=== PATIENT | male | born 1985 | race Two or more races ===

== ENCOUNTER 2022-11-10 10:38 | Emergency (ER) | payer OTHER ==
--- OUTSIDE RECORDS SUMMARY | 2022-11-10 10:42 | XMS REPORT | Continuity of Care Document ---
:1985 Author Organization [facility] t Address [address] [place] [address] [address] [place] [address] Care Team Providers Name Role Phone Unavailable Unavailable Unavailable Payers Payer Name Policy Type Policy Number Effective Date Expiration Date S ource Problems Condition Condition Condition Status Onset Resolution Last Treating Co mments Source Name Details Category Date Date Treatment Clinician Date Family Family Diagnosis Active 2021-06-08 Me moria history of history of 05:10:54 l early CAD early CAD Herm beata Active Diagnosis 06/08/2021 Enayet Rahim Dermatitis Diagnosis Active 2021-06-27 Memoria Dermatitis 05:10:53 l Active [place] Diagnosis 06/27/2021 Enayet Rahim Lipoma of Lipoma of Diagnosis Active 2021-06-08 Memoria right right 05:10:54 l upper upper [place] extremity extremity Active Diagnosis 06/08/2021 Enayet Rahim Encounter Encounter Diagnosis Active 2021-06-08 Memoria to to 05:10:54 l establish establish Herm beata care care Active Diagnosis 06/08/2021 Enayet Rahim Abnormal Abnormal Diagnosis Active 2021-06-27 Memoria LFTs LFTs 05:10:53 l (liver (liver [place] function function tests) tests) Active Diagnosis 06/27/2021 Enayet Rahim 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 05:10:53 l sterolemia sterolemia He rmann Active Problem 06/27/2021 Enayet Rahim Polyphagia Polyphagi Problem Active 2021-06-27 Memoria a Active 05:10:53 l Problem [place] 06/27/2021 Enayet Rahim 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 Active Diagnosis 06/27/2021 Enayet Rahim BMI BMI Diagnosis Active 2021-06-27 Mem oria 32.0-32.9, 32.0-32.9, 05:10:53 l adult adult [place] Active Diagnosis 06/27/2021 Enayet Rahim Depression Depressio Diagnosis Active 2021-06-27 Memoria screen n screen 05:10:53 l Active [place] Diagnosis 06/27/2021 Enayet Rahim Family Family Diagnosis Active 2021-06-08 Me moria history of history of 05:10:54 l diabetes diabetes Christ n mellitus mellitus Active Diagnosis 06/08/2021 Enayet Rahim Allergies, Adverse Reactions, Alerts Allergy Allergy Status Severity Reaction(s) Onset Inactive Treating Comm ents Source Name Type Date Date Clinician N.K.D.A. N.K.D.A. Active Info Not Neville barb Available 06-20 l 00:00: [place] 00 No Known DA Active U 2019-0 [facility]ie 3-18 [place] [facility] 00:[facility]: d 00 [facility] No Known DA Active U 2019-0 [facility] Allergie 3-18 [facility] Medications Ordered Filled Start Stop Current Ordering Indication Dosage Frequency Signature Comments Components Source Medication Medication Date Date Medication? Clinician (SIG) Name Name Betamethaso Yes [place] 1 Memor ia ne 2 Devyn applicatio l Dipropionat 05:10: n to Christ n e 53 affected area Atorvastati Yes [place] TAKE 1 Mem oria n Calcium 2- Devyn TABLET BY l 05:10: MOUTH [place] 53 EVERY DAY Metformin Yes [place] 1 tablet Mem oria HCl 2-01 Devyn l 05:10: [place] 53 Vital Signs Vital Name Observation Time Observation Value Comments Source Weight 2021-06-20 17:30:00 [facility] Height 2021-06-20 17:30:00 [facility] Temperature Oral (F) 2021-06-20 17:30:00 97.8 F [facility] [place] Diastolic (mm Hg) 2021-06-20 17:30:00 Mem orial [place] Systolic (mm Hg) 2021-06-20 17:30:00 Neville rial [place] Weight 2021-05-25 19:30:00 [facility] [place] Height 2021-05-25 19:30:00 [facility] [place] Temperature Oral (F) 2021-05-25 19:30:00 97.8 F [facility] [place] Diastolic (mm Hg) 2021-05-25 19:30:00 Mem orial [place] Systolic (mm Hg) 2021-05-25 19:30:00 Neville rial [place] Procedures This patient has no known procedures. Encounters Start End Encounter Admission Attending Care Care Encounter Source Date/Time Date/Time Type Type Clinicians Facility Department ID 2022-11-10 Outpatient [id number] Memoria 10:41:55 [id number] 2019-08-12 Inpatient HCAPM YUMIKO [id number] [facility] 20:35:00 76 [facility] 2021-06-20 2021-06-20 Outpatient Inpatient Inpatient [id number] [facility] 14:09:00 14:09:00 Providers Providers al [employer] [facility] 2021-06-20 2021-06-20 Outpatient Inpatient Inpatient [id number] [facility] 11:30:00 11:30:00 Providers Providers al [employer] [facility] 2021-05-25 2021-05-25 Outpatient Inpatient Inpatient [id number] [facility] 13:30:00 13:30:00 Providers Providers al [facility] Results Test Description Test Time Test Comments Results Result Comments Source COMPREHENSIVE METABOLIC PANEL 2019-08-12 21:37:00 Test Item Value Reference Range Interpretation Comme nts SODIUM (test code = NA) 138 mmol/L 134-147 N POTASSIUM (test code = K) 3.9 mmol/L 3.4-5.0 N CHLORIDE (test code = CL) 103 mmol/L 100-108 N CARBON DIOXIDE (test code = CO2) 29 mmol/L 21-32 N ANION GAP (test code = GAP) 6.0 GAP calc 4.0-15.0 N GLUCOSE (test code = GLU) 114 MG/DL 70-110 H BLOOD UREA NITROGEN (test code = BUN) 12 MG/DL 7-18 N GLOMERULAR FILTRATION RATE (test code = GFR) >=60 max estimate estG FR >60 CREATININE (test code = CREAT) 1.3 MG/DL 0.8-1.3 N TOTAL PROTEIN (test code = PROT) 7.8 G/DL 6.4-8.2 N ALBUMIN (test code = ALB) 3.9 G/DL 3.4-5.0 N GLOBULIN (test code = GLOB) 3.9 GM/dL ALBUMIN/GLOBULIN RATIO (test code = A/G) 1.0 RATIO 1.2-2.2 L CALCIUM (test code = CA) 9.1 MG/DL 8.5-10.1 N BILIRUBIN TOTAL (test code = BILT) 0.50 MG/DL 0.2-1.2 N SGOT/AST (test code = AST) 17 Unit/L 15-37 N SGPT/ALT (test code = ALT) 43 Unit/L 12-78 N ALKALINE PHOSPHATASE TOTAL (test code = ALKP) 91 Unit/L 50-136 N RULE OUT CO [id number] 21:37:00 Test Item Value Reference Range Interpretation Comments CREATINE KINASE 115 Unit/L 26-192 N (CK) (test code = CK) TROPONIN-I (test < 0.015 NG/ML 0.000-0.045 N Negative: </= 0.045 code = TROPI) Positive: >/= 0.046 Correlation wit h serial results, other cardiac markers , and clinical findin gs is necessary to de termine the clinical significance of this result. Quantit ative results using different methodologies s hould not be compared to one another as nume rical results may yanet yby method. [id number] 21:37:00 Test Item Value Reference Range Interpretation Comments D-DIMER (test code = DDIMER) 234 ng/mLFEU 215-500 N - XR CHEST 2 [id number] 21:28:00 Name: MATTHEW MONTALVO [facility] : 1985 Age/S: 34 / M [address] [place] [place] Unit #: [id number] Loc: [place] [address] Phys: Kurt Pichardo MD Acct: [id number] Dis Date: Status: REG ER PHONE #: [phone] Exam Date: 08/12/20192119 FAX #: Reason: cough EXAMS: CPT: [id number] XR CHEST 2V [id number] Fluoro Time: DAP (Gy m2): Air Kerma (mGy): Single View Chest. Location: B2 Clinical Indication: 34-year-old with cough Comparison: None Findings: Single frontal view of the chest was obtained. Heart size is normal for AP technique. Lungs are clear. No acute osseous abnormality. There is minimal elevation of the right hemidiaphragm. Impression: No acute cardiopulmonary process. at 2127 Reported and signed by: Garrett Flores M.D. CC: Sandra Pedroza DETECTIVE AND INTELLIGENCE ANALYST PAGE 1 Signed Report Name: MATTHEW MONTALVO [facility] : 1985 Age/S: 34 / M [address] [place] [place] Unit #: [id number] Loc: [place] [address] Phys: Kurt Pichardo MD Acct: [id number] Dis Date: Status: REG ER PHONE #: [phone] Exam Date: 08/12/20192119 FAX #: Reason: cough EXAMS: CPT: [id number] XR CHEST 2 V [id number] Fluoro Time: DAP (Gy m2): Air Kerma (mGy): (Continued) Technologist: Dayna Soriano RT(R)(CT) Trnscb Date/Time: 08/12/2019 (2127) [email or web address] Orig Print D/T: S: 08/12/2019 (2130) PAGE 2 Signed ReportCBC W/AUTO [id number] 21:26:00 Test Item Value Reference Range Interpretation Comments WHITE BLOOD CELL (test code = 11.3 K/mm3 3.5-11.0 H WBC) RED BLOOD CELL (test code = RBC) 5.77 M/mm3 4.70-6.10 N HEMOGLOBIN (test code = HGB) 15.9 G/DL 12.3-15.9 N HEMATOCRIT (test code = HCT) 48.4 % 35.8-46.7 H MEAN CELL VOLUME (test code = 83.9 Fl 86.3-98.9 L MCV) MEAN CELL HGB (test code = MCH) 27.6 pg 28.9-34.4 L MEAN CELL HGB CONCETRATION (test 32.9 G/DL 32.1-34.5 N code = MCHC) RED CELL DISTRIBUTION WIDTH (test 12.9 SD 11.5-14.5 N code = RDW) PLATELET COUNT (test code = PLT) 237.0 K/mm3 150-450 N MEAN PLATELET VOLUME (test code = 9.60 fL 7.0-9.6 N MPV) NEUTROPHIL % (test code = NT%) 69.9 % 40-76 N LYMPHOCYTE % (test code = LY%) 21.1 % 20.5-51.1 N MONOCYTE % (test code = MO%) 7.4 % 1.7-9.3 N EOSINOPHIL % (test code = EO%) 1.4 % 0.0-6.0 N BASOPHIL % (test code = BA%) 0.2 % 0.0-2.0 N NEUTROPHIL # (test code = NT#) 7.89 K/mm3 1.8-7.6 H LYMPHOCYTE # (test code = LY#) 2.4 K/mm3 0.6-3.0 N MONOCYTE # (test code = MO#) 0.8 K/mm3 0.2-1.5 N EOSINOPHIL # (test code = EO#) 0.2 K/mm3 0.0-0.4 N BASOPHIL # (test code = BA#) 0.0 K/mm3 0.0-0.2 N MANUAL DIFF REQUIRED (test code = NO DIFF/SCN CRITERIA MDIFF) Notes Date/Time Note Provider Source 2019-08-12 20:51:00-00:00 [facility] ([facility]) EMERGENCY PROVIDER REPORT REPORT#:[id number] REPORT STATUS: Signed DATE:08/12/19 TIME:2050 PATIENT: MATTHEW MONTALVO UNIT #: [id number] ROOM/BED: : 87 AGE: 34 SEX: M PCP PHYS: No Primar y or Family Physician SERVICE AUTHOR: Sandra Pedroza I DETECTIVE AND INTELLIGENCE ANALYST * ALL edits or amendments must be made on the [employer]/computer document * HPI-Chest Pain Under 40 General Confirmed Patient Yes Patient Type New patient Initial Greet Date/Time 08/12/192035 Presentation Chief Complaint Chest pain Sudden in Onset? Yes Onset Occurred Yesterday Symptom Duration Since onset Progression since Onset Gradually worsening Quality Sharp Radiation Does not radiate. )( Migration/Movement None Associated with Reports: Cough, non-producti ve, Shortness of breath. Denies: Cough, productive, Diaphoresis, Fever, Nausea, Numbness/tingling, Palpitations, Vomiting, Wheezing. Exacerbated by Deep breath, Movement Relieved by Nothing Context Immunization Status General Unknown Free Text HPI Notes Free Text HPI Notes 34 y/o M with Fhx of CO and stroke c/o " sharp" 9/10 constant, non-radiating CP that has worsened since yest erday. Patient reports a cough, and nasal congestion 5 days ago, but that has improved. Pt to ok Tylenol and ibuprofen today with no relief. Pain is exacerbated with movement and deep breathes. Denies fever, N/V/D , abd pain, diaphoresis, pal pitations, wheezing, numbness, tingling, or syncope. 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 Portions of this section were scribed by Jessica Hansen on 08/12/19 at 2150 Risk-Chest Pain Under 40 Risk Stratification )( Coronary Artery Disease Risk factors reviewed , Family history )( Pulmonary Embolism Risk factors reviewed, No risk factors )( AMI-Aspirin Aspirin Last 24 Hrs 325 mg, On arrival )( HEART for MACE )( HEART for MACE Response Value History Low index of suspicion 0 ECG Interpretation Normal ECG 0 Age Age under 45 0 Risk Factors for CAD 1-2 CAD risk factors 1 Troponin < or = to NL troponin 0 Total 1 HEART Score for MACE 0-3 (low risk 0.9%-1.7%) Portions of this section were scribed by Jessica Hansen on 08/12/19 at 2105 Review of Systems ROS Statements All systems rev neg except as marked. Focused Review of Systems Constitutional Denies: Chills, Fever. Respiratory Reports: Cough, non-producti ve, Shortness of breath. Denies: Cough, productive, Wheezing. Cardiovascular Reports: Chest pain. Denies: Palpitations, Synco pe. GI Denies: Abdominal pain, Diarrhea, Nausea, Vomiti ng. Musculoskeletal Denies: Extremity pain, Joint pain. Skin Denies: Rash, Swelling. Neurologic Denies: Dizziness, Headache, Numbness, Syncope, Tingling. Additional Review of Systems Eyes Denies: Blurred bilat, Discharge bilat. Ears/Nose/Throat Reports: Nasal congestion. Denies: Earache bilat . Male Denies: Dysuria, Flank pain. Portions of this section were scribed by Jessica Hansen on 08/12/19 at 2105 Past Medical History - Adult Stated Complaint CHEST PAIN Allergies Coded Allergies: No Known Allergies (08/12/19) Review of Nursing Notes Rev avail, and agree Pt reports no significant: Past medical history, Past surgical history Family History: Reports: Heart disease, Stroke/TIA. Smoking status for patients 13 years old or olde r: Never Smoker Other Social History Local resident Portions of this section were scribed by Jessica Hansen on 08/12/19 at 2105 Physical Exam Vital Signs Vital Signs First Documented: Result Date Time Pulse Ox 98 08/12 2035 B/P 140/78 08/12 2035 B/P Mean 98 08/12 2035 O2 Delivery Room air 08/12 2035 Temp 99.0 08/12 2035 Pulse 92 08/12 2035 Resp 14 08/12 2035 Last Documented: Result Date Time Pulse Ox 98 08/12 2035 B/P 140/78 08/12 2035 B/P Mean 98 08/12 2035 O2 Delivery Room air 08/12 2035 Temp 99.0 08/12 2035 Pulse 92 08/12 2035 Resp 14 08/12 2035 Review of Vital Signs Reviewed Focused PE General/Const General/Const Awake, Alert, No acute distress Eyes Eyes No periorbital redness, No periorbital swe lling, Conjunctiva NL MS Neck Neck Atraumatic, Supple, No meningismus Resp/Chest Respiratory/Chest Atraumatic, Breath sounds NL, Breath sounds = bilat, No respiratory distress Cardiovascular Cardiovascular Heart rate NL, Regular r hythm, Heart sounds NL, Cap refill not delayed, Peripheral circulation NL Abdomen/GI Abdomen/GI Soft, Non-tender, No guarding, No re bound, BS normoactive Skin Skin Atraumatic, Color NL, No rash, Warm, Dry, Intact Neurologic Neurologic Oriented X3, Speech NL, Gait NL Psychiatric Psychiatric Affect NL, Mood NL Additional PE MS Head Head Atraumatic, Normocephalic Ears/Nose/Throat Ears/Nose/Throat Atraumatic, Airway patent, Muc ous membranes moist Portions of this section were scribed by Jessica Hansen on 08/12/19 at 2116 Interpretation Diagnostics Lab Results Interpretation Results Laboratory Tests 08/12/192110: [Embedded Image Not Available] Laboratory Tests: 08/11 2110 Chemistry Sodium (134 - 147 mmol/L) 138 Potassium (3.4 - 5.0 mmol/L) 3.9 Chloride (100 - 108 mmol/L) 103 Carbon Dioxide (21 - 32 mmol/L) 29 Anion Gap (4.0 - 15.0 GAP calc) 6.0 BUN (7 - 18 MG/DL) 12 Creatinine (0.8 - 1.3 MG/DL) 1.3 Glomerular Filtr Rate (>60 estGFR) >=60 max est imate Glucose (70 - 110 MG/DL) 114 H Calcium (8.5 - 10.1 MG/DL) 9.1 Total Bilirubin (0.2 - 1.2 MG/DL) 0.50 AST (15 - 37 Unit/L) 17 ALT (12 - 78 Unit/L) 43 Total Alk Phosphatase (50 - 136 Unit/L) 91 Total Creatine Kinase (26 - 192 Unit/L) 115 Troponin I (0.000 - 0.045 NG/ML) < 0.015 Total Protein (6.4 - 8.2 G/DL) 7.8 Albumin (3.4 - 5.0 G/DL) 3.9 Globulin (GM/dL) 3.9 Albumin/Globulin Ratio (1.2 - 2.2 RATIO) 1.0 L Coagulation D-Dimer (215 - 500 ng/mLFEU) 234 Hematology WBC (3.5 - 11.0 K/mm3) 11.3 H RBC (4.70 - 6.10 M/mm3) 5.77 Hgb (12.3 - 15.9 G/DL) 15.9 Hct (35.8 - 46.7 %) 48.4 H MCV (86.3 - 98.9 Fl) 83.9 L MCH (28.9 - 34.4 pg) 27.6 L MCHC (32.1 - 34.5 G/DL) 32.9 RDW (11.5 - 14.5 SD) 12.9 Plt Count (150 - 450 K/mm3) 237.0 MPV (7.0 - 9.6 fL) 9.60 Neut % (Auto) (40 - 76 %) 69.9 Lymph % (Auto) (20.5 - 51.1 %) 21.1 [place] % (Auto) (1.7 - 9.3 %) 7.4 Eos % (Auto) (0.0 - 6.0 %) 1.4 Baso % (Auto) (0.0 - 2.0 %) 0.2 Neut # (Auto) (1.8 - 7.6 K/mm3) 7.89 H Lymph # (Auto) (0.6 - 3.0 K/mm3) 2.4 [place] # (Auto) (0.2 - 1.5 K/mm3) 0.8 Eos # (Auto) (0.0 - 0.4 K/mm3) 0.2 Baso # (Auto) (0.0 - 0.2 K/mm3) 0.0 Add Manual Diff (CRITERIA DIFF/SCN) NO Recent Impressions: RADIOLOGY - XR CHEST 2 V 08/11 2114 Report Impression - Status: SIGNED Entered: 08/12/20192130 Impression: No acute cardiopulmonary process. Impression By: [email or web address] - Garrett Flores M.D. Lab Imaging Statement Laboratory radiographic studies reviewed and con sidered in the medical decision-making. Point of Care Testing Pulse Oximetry Pulse Ox % 98 On: Room air Interpretation Interpreted by me Pulse oximetr y normal Time 2035 ECG #1 Interpretation ECG Documented in MUSE Yes Date 08/12/19 Time 2038 Interpreted by ED physician NL ECG Interpretation Normal rate, Normal sinus rhythm, No STEMI, Normal axis Rate 92 Portions of this section were scribed by Jessica Hansen on 08/12/19 at 2150 Re-Evaluation MDM Re-Evaluation/Progress #1 Time of Re-Eval 2139 Re-Eval Status Improved Eval Following Treatment Pt. feels better Pain Re-Evaluation Pain improved Plan Post Re-Eval Plan discharge Chest Pain MDM Note The patient is resting comfortably and feels bet ter, is alert and in no distress. The repeat examination is unremarkable and benign. The electrocardiogram shows no signs of acute ischem ia and the history, exam, diagnostic testing and current condition do not suggest that this patient is having an acute myocardial i nfarction, significant arrhythmia, unstable angina, esophageal perforation, pulmonary embolism, aort ic dissection, pneumothorax, severe pneumonia, sepsis or other significant pa thology that would warrant further testing, continued ED treatment, admissi on, or cardiology or other specialist consultation at this point. The vital signs have been stable. The patient's condition is stable and appropriate fo r discharge. The patient will pursue further outpatient evaluation with the [facility] care physician, other designated physician or [employer] supervisor. The patien t and/or caregivers have expressed a clear and thorough understanding and agree to follow up as instructed. ED Course Medication(s) Ordered Medication(s) Ordered: Central Nervous System Agents Sig/Wilfredo Start time Last Medication Dose Route Stop Time Status Admin Aspirin 325 MG X1ED STA 08/12 2051 DC 08/11 PO 08/11 Morphine Sulfate 2 MG X1ED STA 08/12 2051 DC IV 08/11 Electrolytic, Caloric, And Allen Sig/Wilfredo Start time Last Medication Dose Route Stop Time Status Admin Sodium Chloride 1,000 ML X1ED STA 08/11 2052 DC 08/11 IV 08/11 Portions of this section were scribed by Jessica Hansen on 08/12/19 at 2150 Patient Discharge Departure Vital Signs/Condition Vital Signs First Documented: Result Date Time Pulse Ox 98 08/12 2035 B/P 140/78 08/12 2035 B/P Mean 98 08/12 2035 O2 Delivery Room air 08/12 2035 Temp 99.0 08/12 2035 Pulse 92 08/12 2035 Resp 14 08/12 2035 Last Documented: Result Date Time Pulse Ox 98 08/12 2035 B/P 140/78 08/12 2035 B/P Mean 98 08/12 2035 O2 Delivery Room air 08/12 2035 Temp 99.0 08/12 2035 Pulse 92 08/12 2035 Resp 14 08/12 2035 All vital signs available at the time of this en try have been reviewed. Condition Stable Clinical Impression Clinical Impression Primary Impression: Atypical chest pain Disposition Decision Discharge )( Discharged to Home Yes )( Time 2146 )( Date 08/12/19 Discharge/Care Plan Counseled Regarding Diagnosi s, Lab results, Imaging studies, Need for follow-up, When to return to ED Prescriptions ibuprofen Prescriptions Reviewed Risks, Benefits, Alternat rufus treatment Discharge Note I have spoken with the patie nt and/or caregivers. I have explained the patient's condition, diagnoses and anita atment plan based on the information available to me at this time. I have answered the patient's and/ or caregiver's questions and addressed any concerns. The patient and/or careg koby have as good an understanding of the patient 's diagnosis, condition and treatment plan as can be expected at this point. The vital signs have bee n stable. The patient's condition is stable and appr opriate for discharge from the emergency department. The patient will pursue further outpatient evalu ation with the primary care physician or other designated or consulting phys ician as outlined in the discharge instructions. The patient and/or caregivers are agreeable to this plan of care and follow-up instructions have been exp lained in detail. The patient and/or caregivers have received these instructio ns in written format and have expressed an understanding of the discharge inst ructions. The patient and/or caregivers are aware that any significant change in condition or worsening of symptoms should prompt an immediate return to health system or the closest emergency department or a call to 911. Quality Measures 12-Lead ECG for CP Performed documented Supervising Physician Note Scribe Statement Keily Hansen, 08/12/192050, scr ibing for and in the presence of [Sandra Pedroza NP] . Signed By: Keily Hansen, 08/12/192050 Provider Scribed Statement I personally performed the s ervices described in this documentation and reviewed the documentation that was dictated to the scrib e(s) in my presence, and it accurately records my words and actions. Sandra Pedroza, 08/12/19 Portions of this section were scribed by Jessica Hansen on 08/12/19 at 2150 Electronically Signed by Sandra Pedroza NP on 0 08/12/19 at 2202 RPT #: [id number] END OF REPORT 2019-08-12 20:51:00-00:00 [facility] ([facility]) EMERGENCY PROVIDER REPORT REPORT#:[id number] REPORT STATUS: Signed DATE:08/12/19 TIME:2050 PATIENT: MATTHEW MONTALVO UNIT #: [id number] ROOM/BED: : 87 AGE: 34 SEX: M PCP PHYS: No Primar y or Family Physician SERVICE AUTHOR: Sandra Pedroza I DETECTIVE AND INTELLIGENCE ANALYST * ALL edits or amendments must be made on the [employer]/computer document * Sandra Pedroza 08/12/192050: HPI-Chest Pain Under 40 General Confirmed Patient Yes Patient Type New patient Presentation Chief Complaint Chest pain Sudden in Onset? Yes Onset Occurred Yesterday Symptom Duration Since onset Progression since Onset Gradually worsening Quality Sharp Radiation Does not radiate. )( Migration/Movement None Associated with Reports: Cough, non-producti ve, Shortness of breath. Denies: Cough, productive, Diaphoresis, Fever, Nausea, Numbness/tingling, Palpitations, Vomiting, Wheezing. Exacerbated by Deep breath, Movement Relieved by Nothing Context Immunization Status General Unknown Free Text HPI Notes Free Text HPI Notes 34 y/o M with Fhx of CO and stroke c/o " sharp" 9/10 constant, non-radiating CP that has worsened since yest erday. Patient reports a cough, and nasal congestion 5 days ago, but that has improved. Pt to ok Tylenol and ibuprofen today with no relief. Pain is exacerbated with movement and deep breathes. Denies fever, N/V/D , abd pain, diaphoresis, pal pitations, wheezing, numbness, tingling, or syncope. 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 Portions of this section were scribed by Jessica Hansen on 08/12/19 at 2150 Risk-Chest Pain Under 40 Risk Stratification )( Coronary Artery Disease Risk factors reviewed , Family history )( Pulmonary Embolism Risk factors reviewed, No risk factors )( AMI-Aspirin Aspirin Last 24 Hrs 325 mg, On arrival )( HEART for MACE )( HEART for MACE Response Value History Low index of suspicion 0 ECG Interpretation Normal ECG 0 Age Age under 45 0 Risk Factors for CAD 1-2 CAD risk factors 1 Troponin < or = to NL troponin 0 Total 1 HEART Score for MACE 0-3 (low risk 0.9%-1.7%) Portions of this section were scribed by Jessica Hansen on 08/12/19 at 2105 Review of Systems ROS Statements All systems rev neg except as marked. Focused Review of Systems Constitutional Denies: Chills, Fever. Respiratory Reports: Cough, non-producti ve, Shortness of breath. Denies: Cough, productive, Wheezing. Cardiovascular Reports: Chest pain. Denies: Palpitations, Synco pe. GI Denies: Abdominal pain, Diarrhea, Nausea, Vomiti ng. Musculoskeletal Denies: Extremity pain, Joint pain. Skin Denies: Rash, Swelling. Neurologic Denies: Dizziness, Headache, Numbness, Syncope, Tingling. Additional Review of Systems Eyes Denies: Blurred bilat, Discharge bilat. Ears/Nose/Throat Reports: Nasal congestion. Denies: Earache bilat . Male Denies: Dysuria, Flank pain. Portions of this section were scribed by Jessica Hansen on 08/12/19 at 2105 Past Medical History - Adult Stated Complaint CHEST PAIN Allergies Coded Allergies: No Known Allergies (08/12/19) Review of Nursing Notes Rev avail, and agree Pt reports no significant: Past medical history, Past surgical history Family History: Reports: Heart disease, Stroke/TIA. Smoking status for patients 13 years old or olde r: Never Smoker Other Social History Local resident Portions of this section were scribed by Jessica Hansen on 08/12/19 at 210 Physical Exam Vital Signs Vital Signs First Documented: Result Date Time Pulse Ox 98 08/12 2035 B/P 140/78 08/12 2035 B/P Mean 98 08/12 2035 O2 Delivery Room air 08/12 2035 Temp 37.2 08/12 2035 Pulse 92 08/12 2035 Resp 14 08/12 2035 Last Documented: Result Date Time B/P 128/74 08/11 2144 B/P Mean 92 08/11 2144 Pulse 91 08/11 2144 Pulse Ox 98 08/12 2035 O2 Delivery Room air 08/12 2035 Temp 37.2 08/12 2035 Resp 14 08/12 2035 Review of Vital Signs Reviewed Focused PE General/Const General/Const Awake, Alert, No acute distress Eyes Eyes No periorbital redness, No periorbital swe lling, Conjunctiva NL MS Neck Neck Atraumatic, Supple, No meningismus Resp/Chest Respiratory/Chest Atraumatic, Breath sounds NL, Breath sounds = bilat, No respiratory distress Cardiovascular Cardiovascular Heart rate NL, Regular r hythm, Heart sounds NL, Cap refill not delayed, Peripheral circulation NL Abdomen/GI Abdomen/GI Soft, Non-tender, No guarding, No re bound, BS normoactive Skin Skin Atraumatic, Color NL, No rash, Warm, Dry, Intact Neurologic Neurologic Oriented X3, Speech NL, Gait NL Psychiatric Psychiatric Affect NL, Mood NL Additional PE MS Head Head Atraumatic, Normocephalic Ears/Nose/Throat Ears/Nose/Throat Atraumatic, Airway patent, Muc ous membranes moist Portions of this section were scribed by Jessica Hansen on 08/12/19 at 2116 Interpretation Diagnostics Lab Results Interpretation Results Laboratory Tests 08/12/192110: [Embedded Image Not Available] Laboratory Tests: 08/11 2110 Chemistry Sodium (134 - 147 mmol/L) 138 Potassium (3.4 - 5.0 mmol/L) 3.9 Chloride (100 - 108 mmol/L) 103 Carbon Dioxide (21 - 32 mmol/L) 29 Anion Gap (4.0 - 15.0 GAP calc) 6.0 BUN (7 - 18 MG/DL) 12 Creatinine (0.8 - 1.3 MG/DL) 1.3 Glomerular Filtr Rate (>60 estGFR) >=60 max est imate Glucose (70 - 110 MG/DL) 114 H Calcium (8.5 - 10.1 MG/DL) 9.1 Total Bilirubin (0.2 - 1.2 MG/DL) 0.50 AST (15 - 37 Unit/L) 17 ALT (12 - 78 Unit/L) 43 Total Alk Phosphatase (50 - 136 Unit/L) 91 Total Creatine Kinase (26 - 192 Unit/L) 115 Troponin I (0.000 - 0.045 NG/ML) < 0.015 Total Protein (6.4 - 8.2 G/DL) 7.8 Albumin (3.4 - 5.0 G/DL) 3.9 Globulin (GM/dL) 3.9 Albumin/Globulin Ratio (1.2 - 2.2 RATIO) 1.0 L Coagulation D-Dimer (215 - 500 ng/mLFEU) 234 Hematology WBC (3.5 - 11.0 K/mm3) 11.3 H RBC (4.70 - 6.10 M/mm3) 5.77 Hgb (12.3 - 15.9 G/DL) 15.9 Hct (35.8 - 46.7 %) 48.4 H MCV (86.3 - 98.9 Fl) 83.9 L MCH (28.9 - 34.4 pg) 27.6 L MCHC (32.1 - 34.5 G/DL) 32.9 RDW (11.5 - 14.5 SD) 12.9 Plt Count (150 - 450 K/mm3) 237.0 MPV (7.0 - 9.6 fL) 9.60 Neut % (Auto) (40 - 76 %) 69.9 Lymph % (Auto) (20.5 - 51.1 %) 21.1 [place] % (Auto) (1.7 - 9.3 %) 7.4 Eos % (Auto) (0.0 - 6.0 %) 1.4 Baso % (Auto) (0.0 - 2.0 %) 0.2 Neut # (Auto) (1.8 - 7.6 K/mm3) 7.89 H Lymph # (Auto) (0.6 - 3.0 K/mm3) 2.4 [place] # (Auto) (0.2 - 1.5 K/mm3) 0.8 Eos # (Auto) (0.0 - 0.4 K/mm3) 0.2 Baso # (Auto) (0.0 - 0.2 K/mm3) 0.0 Add Manual Diff (CRITERIA DIFF/SCN) NO Recent Impressions: RADIOLOGY - XR CHEST 2 V 08/11 2114 Report Impression - Status: SIGNED Entered: 08/12/20192130 Impression: No acute cardiopulmonary process. Impression By: [email or web address] - Garrett Flores M.D. Lab Imaging Statement Laboratory radiographic studies reviewed and con sidered in the medical decision-making. Point of Care Testing Pulse Oximetry Pulse Ox % 98 On: Room air Interpretation Interpreted by me, Pulse oximetr y normal Time 2035 ECG #1 Interpretation ECG Documented in MUSE Yes Date 08/12/19 Time 2038 Interpreted by ED physician MAYRA ECG Interpretation Normal rate, Normal sinus rhythm, No STEMI, Normal axis Rate 92 Portions of this section were scribed by Jessica Hansen on 08/12/19 at 2150 Re-Evaluation MDM Re-Evaluation/Progress #1 Time of Re-Eval 2139 Re-Eval Status Improved Eval Following Treatment Pt. feels better Pain Re-Evaluation Pain improved Plan Post Re-Eval Plan discharge Chest Pain MDM Note The patient is resting comfortably and feels bet ter, is alert and in no distress. The repeat examination is unremarkable and benign. The electrocardiogram shows no signs of acute ischem ia and the history, exam, diagnostic testing and current condition do not suggest that this patient is having an acute myocardial i nfarction, significant arrhythmia, unstable angina, esophageal perforation, pulmonary embolism, aort ic dissection, pneumothorax, severe pneumonia, sepsis or other significant pa thology that would warrant further testing, continued ED treatment, admissi on, or cardiology or other specialist consultation at this point. The vital signs have been stable. The patient's condition is stable and appropriate fo r discharge. The patient will pursue further outpatient evaluation with the [facility] care physician, other designated physician or [employer] supervisor. The patien t and/or caregivers have expressed a clear and thorough understanding and agree to follow up as instructed. ED Course Medication(s) Ordered Medication(s) Ordered: Central Nervous System Agents Sig/Wilfredo Start time Last Medication Dose Route Stop Time Status Admin Aspirin 325 MG X1ED STA 08/12 2051 DC 08/11 PO 08/11 Morphine Sulfate 2 MG X1ED STA 08/12 2051 DC IV 08/11 Electrolytic, Caloric, And Allen Sig/Wilfredo Start time Last Medication Dose Route Stop Time Status Admin Sodium Chloride 1,000 ML X1ED STA 08/11 2052 DC 08/11 IV 08/11 Portions of this section were scribed by Jessica Hansen on 08/12/19 at 2150 Patient Discharge Departure Vital Signs/Condition Vital Signs First Documented: Result Date Time Pulse Ox 98 08/12 2035 B/P 140/78 08/12 2035 B/P Mean 98 08/12 2035 O2 Delivery Room air 08/12 2035 Temp 37.2 08/12 2035 Pulse 92 08/12 2035 Resp 14 08/12 2035 Last Documented: Result Date Time B/P 128/74 08/11 2144 B/P Mean 92 08/11 2144 Pulse 91 08/11 2144 Pulse Ox 98 08/12 2035 O2 Delivery Room air 08/12 2035 Temp 37.2 08/12 2035 Resp 14 08/12 2035 All vital signs available at the time of this en try have been reviewed. Condition Stable Clinical Impression Clinical Impression Primary Impression: Atypical chest pain Disposition Decision Discharge )( Discharged to Home Yes )( Time 2146 )( Date 08/12/19 Discharge/Care Plan Counseled Regarding Diagnosi s, Lab results, Imaging studies, Need for follow-up, When to return to ED Prescriptions ibuprofen Prescriptions Reviewed Risks, Benefits, Alternat rufus treatment Discharge Note I have spoken with the patie nt and/or caregivers. I have explained the patient's condition, diagnoses and anita atment plan based on the information available to me at this time. I have answered the patient's and/ or caregiver's questions and addressed any concerns. The patient and/or careg kboy have as good an understanding of the patient 's diagnosis, condition and treatment plan as can be expected at this point. The vital signs have bee n stable. The patient's condition is stable and appr opriate for discharge from the emergency department. The patient will pursue further outpatient evalu ation with the primary care physician or other designated or consulting phys ician as outlined in the discharge instructions. The patient and/or caregivers are agreeable to this plan of care and follow-up instructions have been exp lained in detail. The patient and/or caregivers have received these instructio ns in written format and have expressed an understanding of the discharge inst ructions. The patient and/or caregivers are aware that any significant change in condition or worsening of symptoms should prompt an immediate return to health system or the closest emergency department or a call to 911. Quality Measures 12-Lead ECG for CP Performed documented Supervising Physician Note Scribe Statement Keily Hansen, 08/12/192050, scr ibing for and in the presence of [Sandra Pedroza NP] . Signed By: Keily Hansen, 08/12/192050 Provider Scribed Statement I personally performed the s ervices described in this documentation and reviewed the documentation that was dictated to the scrib e(s) in my presence, and it accurately records my words and actions. Sandra Pedroza, 08/12/19 Portions of this section were scribed by Jessica Hansen on 08/12/19 at 2150 Kurt Pichardo 08/13/19 0337: HPI-Chest Pain Under 40 General Initial Greet Date/Time 08/12/192035 Patient Discharge Departure Supervising Physician Note MidLv Saw Pt Alone I have reviewed the PA/DETECTIVE AND INTELLIGENCE ANALYST's note and plan of car e. I was available for consultation as needed at al l times during the patient's visit in the emergency department. I agree with the clinical impression , plan and disposition. Electronically Signed by Sandra Pedroza NP on 0 08/12/19 at 2202 Electronically Signed by Kurt Pichardo MD on at 0337 RPT #: [id number] END OF REPORT
[2022-11-10 11:01] LABS: Absolute Lymphocytes (CBC) 3.2 K/uL (0.7-4.9); Hematocrit 45.6 % (39.6-49.0); Lymphocytes % 18.4 % (15.3-44.8); MPV 8.5 fL (7.6-11.3); RBC Red Blood Cell Count 5.31 M/uL (4.33-5.43)
[2022-11-10] MEDS ORDERED: NA CHLORIDE 0.9% 1,000 ML ONE (11:05)
[2022-11-10 11:14] LABS: Potassium 4.1 mEq/L (3.5-5.1)
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
[2022-11-10] MEDS ORDERED: ONDANSETRON 4 MG/2 ML VIAL ONE (11:34)
[2022-11-10] MEDS ORDERED: MORPHINE 4 MG/ML SYR ONE (11:34)
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
[2022-11-10] MEDS ORDERED: MORPHINE 2 MG/ML SYR ONE (12:09)
[2022-11-10 12:37] VITALS: TEMP 97.1
[2022-11-10 12:38] VITALS: O2SAT 97
[2022-11-10 12:41] VITALS: BP 120/79
== END 2022-11-10 12:27 | disposition short-term general hospital (02) ==
LOC: ER 10:38
DX: S37.032A Laceration of left kidney, unspecified degree, initial encounter (principal); S27.1XXA Traumatic hemothorax, initial encounter; S22.42XA Multiple fractures of ribs, left side, initial encounter for closed fracture; V23.49XA Other motorcycle driver injured in collision with car, pick-up truck or van in traffic accident, initial encounter
CPT/HCPCS: 85025; 80048; 36415; 86900; 86850; 82565; 86901; 70450; 72125; 71260; 74177; 99291; Q9967; J2270; J2405; J7030